=== PATIENT | male | born 1975 | race American Indian/Alaskan Native ===

== ENCOUNTER 2019-01-22 02:21 | Emergency (ER) | payer SELFPAY ==
[2019-01-22 02:40] VITALS: BP 131/83
== END 2019-01-22 04:45 ==
LOC: ED 02:21
DX: M54.2 Cervicalgia (principal); M54.5 Low back pain; Z53.21 Procedure and treatment not carried out due to patient leaving prior to being seen by health care provider

== ENCOUNTER 2021-04-26 17:42 | Emergency (ER) | payer SELFPAY | END 2021-04-27 | disposition left against medical advice (07) | LOC: ED 17:42 | DX: Z00.00 Encounter for general adult medical examination without abnormal findings (principal); Z53.21 Procedure and treatment not carried out due to patient leaving prior to being seen by health care provider ==